=== PATIENT | female | born 1935 ===

== ENCOUNTER → 2021-05-18 08:00 | Outpatient (CLI) | payer OTHER ==
[~2021-05-18] VITALS: Ht 154.9 cm; Wt 52.2 kg
[~2021-05-18 08:00] MED LIST: ISORBIDE PO; LASIX40 MG PO; LEVOTH PO; LIPITOR PO; LISINOP PO; METOP PO; SPIRIVA RESPIMAT4 GM IH
== END | disposition home or self-care (01) ==
LOC: LAB 08:00 → EDSTATUS 05-23 12:30 → SURH 05-23 12:30
PROVIDERS: ATTEND Surgery
DX: C18.2 Malignant neoplasm of ascending colon (principal); K92.2 Gastrointestinal hemorrhage, unspecified; K92.1 Melena; D50.9 Iron deficiency anemia, unspecified; I25.9 Chronic ischemic heart disease, unspecified

== ENCOUNTER 2021-05-25 07:50 | Outpatient (CLI) | payer OTHER | END 2021-05-25 08:27 | disposition home or self-care (01) | LOC: NUCLEAR 07:50 | PROVIDERS: ATTEND Internal Medicine Geriatric Medicine | DX: I25.10 Atherosclerotic heart disease of native coronary artery without angina pectoris (principal) | CPT/HCPCS: 78452; A9500 ==